=== PATIENT | male | born 1960 | race Caucasian/White ===

== ENCOUNTER 2020-02-12 10:31 | Emergency (ER) | payer SELFPAY ==
[~2020-02-12] VITALS: Ht 185.4 cm; Wt 83.9 kg
[2020-02-12] MEDS ORDERED: MEDROL DOSEPAK4 MG PO (12:02)
[2020-02-12] MEDS ORDERED: ROBAXIN-750750 MG PO (12:02)
== END 2020-02-12 12:08 | disposition home or self-care (01) ==
LOC: ED 10:31
DX: M54.16 Radiculopathy, lumbar region (principal); X50.1XXA Overexertion from prolonged static or awkward postures, initial encounter; Y93.H1 Activity, digging, shoveling and raking; Y92.89 Other specified places as the place of occurrence of the external cause; Y99.8 Other external cause status

== ENCOUNTER → 2022-12-09 | Outpatient (CLI) | payer SELFPAY ==
[~2022-12-09] MED LIST: MEDROL DOSEPAK4 MG PO; ROBAXIN-750750 MG PO
[2022-12-09 10:20] LABS: BASO % 0.3 % (0.0-1.0); EOS # 0.2 10*3/uL (0.0-0.4); EOS % 1.9 % (1.0-4.0); HEMATOCRIT 44.9 % (42.0-52.0); LYMPH # 2.2 10*3/uL (1.3-4.4); LYMPH % 22.4 % (27.0-41.0); MEAN CELL VOLUME 89.6 fl (80.0-94.0); MEAN CORPUSCULAR HGB 29.7 pg (27.0-31.0); MEAN CORPUSCULAR HGB CONC 33.2 g/dl (33.0-37.0); MEAN PLATELET VOLUME 8.9 fl (9.6-12.3); MONO % 10.7 % (3.0-9.0); NEUT # 6.2 10*3/uL (2.3-7.9); NEUT % 64.5 % (47.0-73.0); PLATELET COUNT AUTOMATED 189 10*3/uL (130-400); RED BLOOD COUNT 5.01 10*6/uL (4.50-5.90); RED CELL DISTRI WIDTH 13.5 % (0-14.5); WHITE BLOOD COUNT 9.7 10*3/uL (4.8-10.8)
[2022-12-09 10:47] LABS: ALKALINE PHOSPHATASE 50 U/L (46-116); BUN 10 mg/dl (9-23); CHLORIDE 104 mmol/L (98-107); POTASSIUM 3.9 mmol/L (3.4-5.1); SGPT/ALT 11 U/L (5-49); TOTAL PROTEIN 7.2 gm/dL (6.0-8.0)
== END | disposition home or self-care (01) ==
LOC: LAB 09:17
PROVIDERS: ATTEND Nurse Practitioner Family
DX: L03.011 Cellulitis of right finger (principal); M79.644 Pain in right finger(s); M79.89 Other specified soft tissue disorders

== ENCOUNTER 2023-01-27 10:38 | Emergency (ER) | payer OTHER ==
[~2023-01-27] VITALS: Ht 182.8 cm; Wt 86.2 kg
== END 2023-01-27 13:28 | disposition home or self-care (01) ==
LOC: ED 10:38
DX: S46.012A Strain of muscle(s) and tendon(s) of the rotator cuff of left shoulder, initial encounter (principal); Z98.890 Other specified postprocedural states; W19.XXXA Unspecified fall, initial encounter; Y93.89 Activity, other specified; Y92.89 Other specified places as the place of occurrence of the external cause; Y99.0 Civilian activity done for income or pay

== ENCOUNTER → 2023-03-20 | Outpatient (CLI) | payer OTHER | END | disposition home or self-care (01) | LOC: MRI 01:49 | PROVIDERS: ATTEND Orthopaedic Surgery | DX: S48.912A Complete traumatic amputation of left shoulder and upper arm, level unspecified, initial encounter (principal); M19.012 Primary osteoarthritis, left shoulder; M25.812 Other specified joint disorders, left shoulder; S46.812A Strain of other muscles, fascia and tendons at shoulder and upper arm level, left arm, initial encounter; X58.XXXA Exposure to other specified factors, initial encounter; Y93.89 Activity, other specified; Y92.89 Other specified places as the place of occurrence of the external cause; Y99.8 Other external cause status ==

== ENCOUNTER → 2023-04-24 | Day surgery (SDC) | payer OTHER ==
[2023-04-21 13:38] VITALS: BP 117/77
[2023-04-24] VITALS (7 sets, daily range): BP systolic 103–126; BP diastolic 65–83
[~2023-04-24] VITALS: Ht 182.8 cm; Wt 88.5 kg
[~2023-04-24] MED LIST changes: +ACETAMINOPHEN 100 ML IV ONE; +EPINEPHrine Hydrochloride 1 MG/ML AMP ONE; +EPINEPHrine/Lidocaine Hydroc 20 ML VIAL ONE; +HYDROCODONE-AC1 EAC1 PO; +Lactated Ringer's Solution 1,000 ML IV ONE; +Lidocaine Hydrochloride 2% 10 ML AMP IM ONE; +Midazolam Hydrochloride 2 MG/2 ML VIAL IV ONE; +Midazolam Hydrochloride 2 MG/2 ML VIAL ONE; +Ondansetron Hydrochloride 4 MG/2 ML VIAL IV ONE; +PROPOFOL 200 MG/20 ML VIAL IV ONE; +Phenylephrine Hydrochloride 1 MG/10 ML SYRINGE IV ONE; +ROCURONIUM BROMIDE 50 MG/5 ML SYRINGE IV ONE; +Ropivacaine Hydrochloride 5 MG/ML 20 ML AMP IJ ONE; +SEVOFLURANE 250 ML BOT INH ONE; +ceFAZolin sodium 2GM/20ML IV ONE; +ceFAZolin sodium/sodium chlor 20 ML IV ONE
== END | disposition home or self-care (01) ==
LOC: SDC 04-21 13:15
PROVIDERS: ATTEND Orthopaedic Surgery
DX: S46.012A Strain of muscle(s) and tendon(s) of the rotator cuff of left shoulder, initial encounter (principal); M25.812 Other specified joint disorders, left shoulder; Z87.891 Personal history of nicotine dependence; Z98.890 Other specified postprocedural states; Z79.899 Other long term (current) drug therapy; Z82.3 Family history of stroke; X58.XXXA Exposure to other specified factors, initial encounter; Y93.89 Activity, other specified; Y92.89 Other specified places as the place of occurrence of the external cause; Y99.8 Other external cause status

== ENCOUNTER → 2023-04-30 | Outpatient (CLI) | payer OTHER ==
[~2023-04-30] MED LIST changes: -ACETAMINOPHEN 100 ML IV ONE; -EPINEPHrine Hydrochloride 1 MG/ML AMP ONE; -EPINEPHrine/Lidocaine Hydroc 20 ML VIAL ONE; -Lactated Ringer's Solution 1,000 ML IV ONE; -Lidocaine Hydrochloride 2% 10 ML AMP IM ONE; -Midazolam Hydrochloride 2 MG/2 ML VIAL IV ONE; -Midazolam Hydrochloride 2 MG/2 ML VIAL ONE; -Ondansetron Hydrochloride 4 MG/2 ML VIAL IV ONE; -PROPOFOL 200 MG/20 ML VIAL IV ONE; -Phenylephrine Hydrochloride 1 MG/10 ML SYRINGE IV ONE; -ROCURONIUM BROMIDE 50 MG/5 ML SYRINGE IV ONE; -Ropivacaine Hydrochloride 5 MG/ML 20 ML AMP IJ ONE; -SEVOFLURANE 250 ML BOT INH ONE; -ceFAZolin sodium 2GM/20ML IV ONE; -ceFAZolin sodium/sodium chlor 20 ML IV ONE
== END | disposition home or self-care (01) ==
LOC: ORTHO 03:36
PROVIDERS: ATTEND Orthopaedic Surgery
DX: M19.012 Primary osteoarthritis, left shoulder (principal); M75.102 Unspecified rotator cuff tear or rupture of left shoulder, not specified as traumatic